=== PATIENT | female | born 1990 | race Hispanic/Latino ===

== ENCOUNTER 2018-02-01 16:38 | Emergency (ER) | payer BC ==
[2018-02-01 16:40] VITALS: BP 102/84; RESP 16; TEMP 97.6; O2SAT 98
--- NOTE | 2018-02-01 16:58 | ED PDOC ---
HPI: Psych/Substance Abuse Time Seen by Provider: 02/01/18 16:56 Chief Complaint (Nursing): Alcohol Ingestion Chief Complaint (Provider): ALCOHOL INGESTION History Per: Patient (27 Y/O FEMALE HERE FOR APPARENT INTOXICATION. NOTED SLEEPING ON STREET. PATIENT DENIES ANY COMPLAINTS.) Past Medical History Reviewed: Historical Data, Nursing Documentation, Vital Signs Vital Signs: Last Vital Signs Temp 97.6 F 02/01/18 16:39 Pulse 110 H 02/01/18 16:39 Resp 16 02/01/18 16:39 BP 102/84 02/01/18 16:39 Pulse Ox 98 02/01/18 16:39 - Family History Family History: States: No Known Family Hx - Allergies Allergies/Adverse Reactions: Allergies Allergy/AdvReac Type Severity Reaction Status Date / Time No Known Allergies Allergy Verified 02/01/18 16:40 Review of Systems ROS Statement: Except As Marked, All Systems Reviewed And Found Negative Physical Exam - Reviewed Nursing Documentation Reviewed: Yes Vital Signs Reviewed: Yes - Physical Exam Appears: Positive for: Well, Non-toxic, No Acute Distress Head Exam: Positive for: ATRAUMATIC, NORMAL INSPECTION, NORMOCEPHALIC Skin: Positive for: Normal Color, Warm, DRY Eye Exam: Positive for: EOMI, Normal appearance, PERRL ENT: Positive for: Normal ENT Inspection Neck: Positive for: Normal, Painless ROM Cardiovascular/Chest: Positive for: Regular Rate, Rhythm Respiratory: Positive for: CNT, Normal Breath Sounds Gastrointestinal/Abdominal: Positive for: Normal Exam, Soft Back: Positive for: Normal Inspection Extremity: Positive for: Normal ROM Neurologic/Psych: Positive for: Alert, Oriented - ECG O2 Sat by Pulse Oximetry: 98 - Progress ED Course And Treament: PATIENT NOTED WITH STEADY GAIT. PATIENT'S FRIENDS COMING TO ED TO PICK HER UP. Disposition - Clinical Impression Clinical Impression: Alcohol ingestion - Patient ED Disposition Is Patient to be Admitted: No - Disposition Disposition: Routine/Home Disposition Time: 16:58 Condition: FAIR Instructions: Alcohol Poisoning (DC)
[2018-02-01 17:08] VITALS: PULSE 98
== END 2018-02-01 17:10 | disposition home or self-care (01) ==
LOC: H.ER 16:38
DX: F10.10 Alcohol abuse, uncomplicated (principal)